=== PATIENT | male | born 1970 | race Two or more races ===

== ENCOUNTER 2017-09-06 09:23 | Outpatient (CLI) | payer OTHER | END 2017-09-06 09:40 | disposition home or self-care (01) | LOC: TOM 09:23 | DX: R51 Headache (principal) ==

== ENCOUNTER 2020-05-13 14:44 | Outpatient (CLI) | payer OTHER | END 2020-05-13 14:57 | disposition home or self-care (01) | LOC: TOM 14:44 | PROVIDERS: ATTEND Surgery | DX: R10.84 Generalized abdominal pain (principal) ==

== ENCOUNTER 2021-11-13 12:15 | Outpatient (CLI) | payer OTHER | END 2021-11-13 12:17 | disposition home or self-care (01) | LOC: MRI 12:15 | DX: G45.9 Transient cerebral ischemic attack, unspecified (principal) | CPT/HCPCS: 70552 ==

== ENCOUNTER → 2022-01-08 | Outpatient (CLI) | payer OTHER | END | disposition home or self-care (01) | LOC: TOM 07:46 | PROVIDERS: ATTEND Family Medicine | DX: S06.5X0A Traumatic subdural hemorrhage without loss of consciousness, initial encounter (principal); R51.9 Headache, unspecified ==

== ENCOUNTER 2022-03-09 15:09 | Outpatient (CLI) | payer OTHER | END 2022-03-09 15:23 | disposition home or self-care (01) | LOC: LAB 15:09 | PROVIDERS: ATTEND Radiology Diagnostic Radiology | DX: Z01.810 Encounter for preprocedural cardiovascular examination (principal); I10 Essential (primary) hypertension; G44.011 Episodic cluster headache, intractable ==

== ENCOUNTER 2022-03-12 07:28 | Outpatient (CLI) | payer OTHER | END 2022-03-12 07:41 | disposition home or self-care (01) | LOC: LAB 07:28 | DX: Z01.812 Encounter for preprocedural laboratory examination (principal) ==

== ENCOUNTER 2022-03-13 08:05 | Outpatient (CLI) | payer OTHER | END 2022-03-13 08:20 | disposition home or self-care (01) | LOC: MRI 08:05 | PROVIDERS: ATTEND Internal Medicine Gastroenterology | DX: I63.9 Cerebral infarction, unspecified (principal) | CPT/HCPCS: 70553 ==

== ENCOUNTER 2023-10-10 11:50 | Outpatient (CLI) | payer OTHER | END 2023-10-10 12:01 | disposition home or self-care (01) | LOC: MRI 11:50 | PROVIDERS: ATTEND Family Medicine Geriatric Medicine | DX: G93.5 Compression of brain (principal) | CPT/HCPCS: 70552 ==